=== PATIENT | male | born 1960 | race Caucasian/White ===

== ENCOUNTER 2017-12-06 08:10 | Day surgery (SDC) | payer OTHER | END 2017-12-06 12:12 | disposition home or self-care (01) | LOC: AMB-ENDOS 08:10 → CIR LITO 13:30 | DX: C20 Malignant neoplasm of rectum (principal); D12.2 Benign neoplasm of ascending colon; K57.30 Diverticulosis of large intestine without perforation or abscess without bleeding ==

== ENCOUNTER 2017-12-28 09:27 | Inpatient (IN) | payer OTHER ==
[~2017-12-28] VITALS: Ht 185.4 cm; Wt 86.2 kg
[2017-12-28] MEDS ORDERED: AMARYL (09:49)
[2018-01-05] MEDS ORDERED: GLIMEPIRIDE4 MG PO (08:16)
[2018-01-07] MEDS ORDERED: PERCOCET 5-3251 EACH PO (11:20)
[2018-01-07] MEDS ORDERED: OMEPRAZOLE20 MG PO (11:20)
[2018-01-07] MEDS ORDERED: IMODIUM A-D2 MG PO (11:20)
== END 2018-01-07 14:42 | disposition home or self-care (01) | DRG 331 ==
LOC: SURH 09:30 → O/R 01-04 05:45 → SURH 01-04 05:45
PROVIDERS: Surgery
PROC: 07TC4ZZ Resection of Pelvis Lymphatic, Percutaneous Endoscopic Approach (ICD-10-PCS; 2018-01-04)
PROC: 0D1B4Z4 Bypass Ileum to Cutaneous, Percutaneous Endoscopic Approach (ICD-10-PCS; 2018-01-04)
PROC: 0DJD8ZZ Inspection of Lower Intestinal Tract, Via Natural or Artificial Opening Endoscopic (ICD-10-PCS; 2018-01-04)
PROC: 0DTN4ZZ Resection of Sigmoid Colon, Percutaneous Endoscopic Approach (ICD-10-PCS; principal; 2018-01-04 10:15)
DX: C19 Malignant neoplasm of rectosigmoid junction (principal); R59.0 Localized enlarged lymph nodes

== ENCOUNTER 2018-04-07 00:49 | Inpatient (IN) | payer OTHER ==
[~2018-04-07] VITALS: Ht 185.4 cm; Wt 83.5 kg
[~2018-04-07 00:49] MED LIST: AMARYL; GLIMEPIRIDE4 MG PO; IMODIUM A-D2 MG PO; OMEPRAZOLE20 MG PO; PERCOCET 5-3251 EACH PO
[2018-04-10] MEDS ORDERED: IMODIUM A-D2 M2 PO (11:50)
[2018-04-10] MEDS ORDERED: INTESTINEX680 M1 PO (11:50)
== END 2018-04-10 12:43 | disposition home or self-care (01) | DRG 389 ==
LOC: ER 00:49 → SEC-K 08:15 → MEDI 08:15 → MEDJ 04-08 21:11
PROC: BW25Y0Z Computerized Tomography (CT Scan) of Chest, Abdomen and Pelvis using Other Contrast, Unenhanced and Enhanced (ICD-10-PCS; principal; 2018-04-07)
PROC: 8E0ZXY6 Isolation (ICD-10-PCS; 2018-04-08)
PROC: 3E0336Z Introduction of Nutritional Substance into Peripheral Vein, Percutaneous Approach (ICD-10-PCS; 2018-04-08)
DX: K56.690 Other partial intestinal obstruction (principal); C20 Malignant neoplasm of rectum; E86.0 Dehydration; E11.9 Type 2 diabetes mellitus without complications; K76.0 Fatty (change of) liver, not elsewhere classified; K57.30 Diverticulosis of large intestine without perforation or abscess without bleeding; Z92.21 Personal history of antineoplastic chemotherapy; Z93.2 Ileostomy status; K80.80 Other cholelithiasis without obstruction

== ENCOUNTER 2018-07-27 15:03 | Inpatient (IN) | payer OTHER ==
[~2018-07-27] VITALS: Ht 185.4 cm; Wt 86.2 kg
[~2018-07-27 15:03] MED LIST changes: +IMODIUM A-D2 M2 PO; +INTESTINEX680 M1 PO
[2018-08-16] MEDS ORDERED: INTESTINEX680 M1 PO (14:16)
[2018-08-16] MEDS ORDERED: OMEPRAZOLE20 MG PO (14:16)
[2018-08-16] MEDS ORDERED: PERCOCET 5-3251 EACH PO (14:16)
== END 2018-08-16 15:49 | disposition home or self-care (01) | DRG 330 ==
LOC: SURH 08-12 07:00 → O/R 08-12 07:09 → RECOVERY 08-12 12:15 → SURH 08-12 12:15
PROVIDERS: Surgery
PROC: 0DQB4ZZ Repair Ileum, Percutaneous Endoscopic Approach (ICD-10-PCS; principal; 2018-08-12 07:00)
DX: Z43.2 Encounter for attention to ileostomy (principal); C20 Malignant neoplasm of rectum; E11.9 Type 2 diabetes mellitus without complications; K76.0 Fatty (change of) liver, not elsewhere classified; K57.30 Diverticulosis of large intestine without perforation or abscess without bleeding; Z92.3 Personal history of irradiation

== ENCOUNTER 2019-03-11 19:09 | Emergency (ER) | payer OTHER ==
[~2019-03-11] VITALS: Ht 185.4 cm; Wt 81.6 kg
== END 2019-03-12 08:46 | disposition home or self-care (01) ==
LOC: ER 19:09
DX: K52.9 Noninfective gastroenteritis and colitis, unspecified (principal); R10.84 Generalized abdominal pain

== ENCOUNTER 2019-03-27 10:03 | Day surgery (SDC) | payer OTHER ==
[~2019-03-27 10:03] MED LIST changes: +[UNRECOGNIZED DRUG - OTHER] PO
== END 2019-03-27 14:50 | disposition home or self-care (01) ==
LOC: AMB-ENDOS 10:03
DX: C20 Malignant neoplasm of rectum (principal)

== ENCOUNTER 2019-04-04 07:00 | Day surgery (SDC) | payer OTHER ==
[~2019-04-04] VITALS: Ht 185.4 cm; Wt 80.3 kg
[2019-04-04] MEDS ORDERED: PERCOCET 5-3251 EACH PO (09:29)
== END 2019-04-04 13:00 | disposition home or self-care (01) ==
LOC: CIR.AMB 07:00 → SURG 11:00 → EDSTATUS 11:00 → CIR.AMB 13:00 → SURG 14:30 → O/R 14:50
DX: C20 Malignant neoplasm of rectum (principal); C78.7 Secondary malignant neoplasm of liver and intrahepatic bile duct; E11.9 Type 2 diabetes mellitus without complications; Z79.4 Long term (current) use of insulin
CPT/HCPCS: 36558; C1751

== ENCOUNTER 2020-02-12 16:12 | Inpatient (IN) | payer OTHER ==
[~2020-02-12] VITALS: Ht 185.4 cm; Wt 61.2 kg
--- NOTE | 2020-02-12 16:26 | NUR ---
SE RECIBE PTE ALERTA Y ORIENTADO X3,REFIERE TENER FELIPE ILEOSTOMIA OBSTRUIDA,SE LE REALIZA DEXTRO TIENE 45 ,ES PTE DEL HECTOR CELESTIN,TIENE DOLOR ABDOMINAL ,CANCER EN EL COLON CON METASTASIS.
--- NOTE | 2020-02-12 17:40 | NUR ---
PACIENTE ALERTA Y ORIENTADA EN JUSTYNA LONNIE ESFERAS. SE ORIENTA A PACIENTE SOBRE PROCEDIMIENTO Y TX REFIERE ENTENDER. SE EXTRAE MUESTRAS DE LABORATOIRO CON MEDIDAS ASEPTICAS Y SE ADMINISTRA MEDICAMENTOS SHOBHA ORDEN MEDICA.
--- NOTE | 2020-02-12 23:57 | NUR ---
SE RECIBE PT ALERTA Y ORIENTADO EN TIEMPO LUGAR Y PERSONA, AL MOMENTO EN CAMA CON BARANDAS ELEVADAS, RECIBIENDO D5W.9NSS + MVI BAJANDO A 255ML/HR. IVF PATENTE. PT CONSULTADO CON DR Garrett BOGGS.SE MANTIENE EN OBSERVACION POR CAMBIOS.
[2020-02-14] MEDS ORDERED: GLIMEPIRIDE4 M1 PO (08:45)
[2020-02-14] MEDS ORDERED: PREVACID30 MG PO (08:46)
[2020-02-15] MEDS ORDERED: TENORMIN50 M1 (14:56)
[2020-02-16] MEDS ORDERED: TRAZODONE HCL50 MG PO (10:14)
[2020-02-16] MEDS ORDERED: NUCYNTA50 MG PO (10:14)
[2020-02-16] MEDS ORDERED: CIPRO500 MG PO (10:14)
[2020-02-17] MEDS ORDERED: TRAZODONE HCL150 MG PO (12:28)
[2020-02-17] MEDS ORDERED: NUCYNTA50 MG PO (12:28)
[2020-02-17] MEDS ORDERED: CIPRO500 MG PO (12:28)
[2020-02-17] MEDS ORDERED: TRAZODONE HCL50 MG PO (12:29)
== END 2020-02-17 13:17 | disposition home or self-care (01) | DRG 389 ==
LOC: ER 16:12 → SEC-K 02-13 07:39 → MEDJ 02-14 08:49
PROVIDERS: ADMIT Surgery; ATTEND Surgery
PROC: 8E0ZXY6 Isolation (ICD-10-PCS; principal; 2020-02-13)
PROC: BW21YZZ Computerized Tomography (CT Scan) of Abdomen and Pelvis using Other Contrast (ICD-10-PCS; 2020-02-13)
DX: K56.690 Other partial intestinal obstruction (principal); N32.1 Vesicointestinal fistula; N39.0 Urinary tract infection, site not specified; C78.7 Secondary malignant neoplasm of liver and intrahepatic bile duct; C78.6 Secondary malignant neoplasm of retroperitoneum and peritoneum; C78.00 Secondary malignant neoplasm of unspecified lung; C79.00 Secondary malignant neoplasm of unspecified kidney and renal pelvis; N13.30 Unspecified hydronephrosis; Z93.2 Ileostomy status; B96.1 Klebsiella pneumoniae [K. pneumoniae] as the cause of diseases classified elsewhere; F32.9 Major depressive disorder, single episode, unspecified; E11.9 Type 2 diabetes mellitus without complications

== ENCOUNTER 2020-03-18 16:38 | Inpatient (IN) | payer OTHER ==
[~2020-03-18] VITALS: Ht 185.4 cm; Wt 61.2 kg
[~2020-03-18 16:38] MED LIST changes: +CIPRO500 MG PO; +GLIMEPIRIDE4 M1 PO; +NUCYNTA50 MG PO; +PREVACID30 MG PO; +TENORMIN50 M1; +TRAZODONE HCL150 MG PO; +TRAZODONE HCL50 MG PO
[2020-03-18] MEDS ORDERED: DECADRON4 MG PO (16:53)
[2020-03-18] MEDS ORDERED: KEPPRA XR500 MG PO (16:53)
[2020-03-18] MEDS ORDERED: BUTRANS1 EAC1 TD (16:54)
[2020-03-18] MEDS ORDERED: ATIVAN1 M1 PO (16:54)
--- NOTE | 2020-03-18 16:56 | NUR ---
PTE MASCULINO ALERTA Y ORIENTADO EN [place]ON[place] ESFERAS REFIERE DOLOR ABDOMINAL HACE LONNIE CORTEZ INDICA CREER ESTAR OBSTRUIDO. PTE CON ILEOSTOMIA Y PRESENTO UN [facility]O [facility].
== END 2020-03-27 14:10 | disposition other institution (70) | DRG 375 ==
LOC: ER 16:38 → SURH 22:25
PROVIDERS: ADMIT Surgery; ATTEND Surgery
PROC: 0D9670Z Drainage of Stomach with Drainage Device, Via Natural or Artificial Opening (ICD-10-PCS; 2020-03-18)
PROC: 8E0ZXY6 Isolation (ICD-10-PCS; 2020-03-18)
PROC: 3E0336Z Introduction of Nutritional Substance into Peripheral Vein, Percutaneous Approach (ICD-10-PCS; principal; 2020-03-19)
PROC: 02HV33Z Insertion of Infusion Device into Superior Vena Cava, Percutaneous Approach (ICD-10-PCS; 2020-03-19)
PROC: 3E0F7GC Introduction of Other Therapeutic Substance into Respiratory Tract, Via Natural or Artificial Opening (ICD-10-PCS; 2020-03-26)
DX: C78.6 Secondary malignant neoplasm of retroperitoneum and peritoneum (principal); C78.00 Secondary malignant neoplasm of unspecified lung; C79.31 Secondary malignant neoplasm of brain; K56.690 Other partial intestinal obstruction; N39.0 Urinary tract infection, site not specified; C18.9 Malignant neoplasm of colon, unspecified; R18.8 Other ascites; N13.30 Unspecified hydronephrosis; E86.0 Dehydration; E11.9 Type 2 diabetes mellitus without complications; I10 Essential (primary) hypertension; F32.9 Major depressive disorder, single episode, unspecified; Z93.2 Ileostomy status; Z20.828 Contact with and (suspected) exposure to other viral communicable diseases; B96.1 Klebsiella pneumoniae [K. pneumoniae] as the cause of diseases classified elsewhere